=== PATIENT | male | born 1950 | race Caucasian/White ===

== ENCOUNTER → 2016-11-18 | Day surgery (SDC) | payer OTHER ==
[~2016-11-18] MED LIST: ASPI81 PO; BUPIVACAINE/EPINEPHRINE 0.25% PF 30 ML VIAL ONE; KETOROLAC TROMETHAMINE 30 MG/ML (IVP) VIAL IV PUSH ONE; LACTATED RINGER'S 1000 ML INJ 1,000 ML ONE; LISI-360 PO; LORT7.5T3 PO; MIDAZOLAM HCL 2 MG/2 ML VIAL ONE; ONDANSETRON HCL 4 MG/2 ML VIAL IV PUSH ONE; PROPOFOL 200 MG/20 ML AMP IV ONE; TAB-TAB PO; TRIAMCINOLONE ACETONIDE 40 MG/ML VIAL ONE; ZOCO80TA PO; ceFAZolin 2 GM PREMIX 50 ML ONE
--- NOTE | 2016-11-21 14:07 | MP ---
cc: ABDON OBRIEN M.D. DATE OF SURGERY 11/18/2016 PREOPERATIVE DIAGNOSIS Right knee complex medial meniscus tear. POSTOPERATIVE DIAGNOSIS Right knee complex medial meniscus tear. PROCEDURE 1. Right knee complex medial meniscus tear 2. Chondromalacia weightbearing portion medial femoral condyle 3. Right knee lateral meniscus tear PROCEDURE Right knee arthroscopic partial medial and partial lateral meniscectomy with gentle chondroplasty on the weightbearing portion of the medial femoral condyle. ANESTHESIA General SURGEON Abdon Obrien MD MANAGER OF INVESTIGATIONS SURGEON Staff COMPLICATIONS None known. INDICATION Sourav Tan is an adult male with persistent right knee pain and positive MRI findings. He now presents for arthroscopic surgery. The risks and benefits have thoroughly been discussed and a detailed informed consent has been obtained. PROCEDURE The patient is brought into the operating room. He was placed under general anesthetic. The right lower extremity was draped and prepped in the usual sterile fashion. IV antibiotics were given and a time-out was completed. Marcaine was injected about the inferior lateral portal and then blunt trocar was used to introduce the cannula into the knee. An effusion was noted. The knee was insufflated with saline. The patellofemoral joint showed no significant abnormalities. The notch showed an ACL. The lateral compartment showed unstable radial tearing in the anterior midbody and posterior horn of the lateral meniscus involving the inner 25% of the meniscus. We came to the medial side and the knee, made our medial based portal with Marcaine about this portal and then brought the arthroscopic shaver and from that angle performed an arthroscopic partial lateral meniscectomy with the knee in a figure four position. Follow-up photograph taken here demonstrating before and after. The knee was then placed into a valgus stress position opening the medial compartment and unstable tears of the medial meniscus are noted. One of the pieces was going straight up along the joint line. The maximum thickness of the tear was at the midbody of the medial meniscus which was 80% the thickness. The posterior horn involved 60% of the meniscus. We proceeded with arthroscopic partial medial meniscectomy using a combination of basket forceps and arthroscopic shaver. There was some delaminated cartilage on the weightbearing portion of medial femoral condyle and a gentle chondroplasty was performed and there was a small area of exposed bone only a few millimeters. We smoothed and contoured with a shaver 90 degrees to the face of the condyle on the reverse mode. We did smooth and fine-tuned the midbody of the meniscus with the arthroscope in the medial portal and bringing the shaver in from the lateral portal. The scope was placed back to the lateral portal fine-tuning and smoothing performed. Repeat diagnostic arthroscopy revealed no loose bodies. We used 2 cc of Kenalog 80 mg to inject along with the residual Marcaine into the knee. The portals were closed with Steri-Strips. Sterile dressing was applied. Sarath wrap applied. The patient was awoken and returned to the recovery room in stable condition. MD LESIA Tadeo/RACHELLE /12:56 PM /2:01 PM
== END | disposition home or self-care (01) ==
LOC: ESDC 09:34
PROVIDERS: ATTEND Orthopaedic Surgery Sports Medicine
DX: S83.231A Complex tear of medial meniscus, current injury, right knee, initial encounter (principal); S83.281A Other tear of lateral meniscus, current injury, right knee, initial encounter; M94.261 Chondromalacia, right knee
CPT/HCPCS: 01400; 29880; J0690; J1885; J2250; J2405; J3010; J3301; J7120